=== PATIENT | female | born 1960 | race Caucasian/White ===

== ENCOUNTER 2019-09-24 20:20 | Inpatient (IN) | payer SELFPAY ==
[~2019-09-24] VITALS: Ht 167.6 cm; Wt 155.6 kg
[~2019-09-24 20:20] MED LIST: INSU100V31 SQ; INSU100V8 SQ; LISI1TAB20 PO; METF10007 PO
--- NOTE | 2019-09-24 20:46 | PHYS DOC ---
Past Medical History Past Medical History: Arthritis, COPD, Depression, Diabetes-Type II, Fibr omyalgia, Hypertension, Pneumonia, Other Additional Past Medical Histor: neuropathy Past Surgical History: Tubal ligation, Other Additional Past Surgical Histo: Colonoscopy, Mole removal, Cyst removal, Kidney stone Smoking Status: Never Smoker Alcohol Use: None Drug Use: None General Adult EDM: Chief Complaint: CHEST PAIN HPI: HPI: Patient is a 58-year-old female with multiple medical problems including fibromyalgia and diabetes who presents with multiple complaints tonight. First she states she has some pain in her chest that she is described as a tightness. She has associated nausea. She states the pain radiates into her back and left arm. EMS was called and gave her morphine, Zofran, nitro and aspirin with little to no relief of her symptoms. She denies any fever chills or sweats. She has had no upper respiratory type symptoms. She states this just started within the last couple of hours. She states the pain is aching in nature and nothing seems to make it better or worse. [] Review of Systems: Review of Systems: Constitutional: Denies fever or chills. [] Eyes: Denies change in visual acuity. [] HENT: Denies nasal congestion or sore throat. [] Respiratory: Denies cough or shortness of breath. [] Cardiovascular: Per HPI. [] GI: Denies abdominal pain, nausea, vomiting, bloody stools or diarrhea. [] : Denies dysuria. [] Musculoskeletal: Denies back pain or joint pain. [] Integument: Denies rash. [] Neurologic: Denies headache, focal weakness or sensory changes. [] Endocrine: Denies polyuria or polydipsia. [] Lymphatic: Denies swollen glands. [] Psychiatric: Denies depression or anxiety. [] Heart Score: HEART Score for Chest Pain: HEART Score for Chest Pain Response (Comments) Value History Highly Suspicious 2 ECG Nonspecific Repolarizatio 1 Age >45 - < 65 1 Risk Factors 1 or 2 Risk Factors 1 Troponin < Normal Limit 0 Total 5 Risk Factors: Risk Factors: DM, Current or recent (<one month) smoker, HTN, HLP, family history of CAD, obesity. Risk Scores: Score 0 - 3: 2.5% MACE over next 6 weeks - Discharge Home Score 4 - 6: 20.3% MACE over next 6 weeks - Admit for Clinical Observation Score 7 - 10: 72.7% MACE over next 6 weeks - Early Invasive Strategies Current Medications: Current Medications Medications (Trade) Dose Ordered Sig/David Start Time Stop Time Status Last Admin Dose Admin Lorazepam (Ativan Inj) 1 mg 1X ONCE 09/24/19 20:45 09/24/19 20:46 Allergies: Allergies: Allergies Coded Allergies Type Severity Reaction Last Updated Verified codeine Allergy Intermediate N/V 09/01/13 Yes hydromorphone Allergy Intermediate N/V 09/01/13 Yes Physical Exam: PE: Constitutional: Well developed, well nourished, no acute distress, non-toxic appearance. [] HENT: Normocephalic, atraumatic, bilateral external ears normal, oropharynx moist, no oral exudates, nose normal. [] Eyes: PERRLA, EOMI, conjunctiva normal, no discharge. [] Neck: Normal range of motion, no tenderness, supple, no stridor. [] Cardiovascular:Heart rate regular rhythm, no murmur [] Lungs & Thorax: Bilateral breath sounds clear to auscultation [] Abdomen: Bowel sounds normal, soft, no tenderness, no masses, no pulsatile masses. [] Skin: Warm, dry, no erythema, no rash. [] Back: No tenderness, no CVA tenderness. [] Extremities: No tenderness, no cyanosis, no clubbing, ROM intact, no edema. [] Neurologic: Alert and oriented X 3, normal motor function, normal sensory function, no focal deficits noted. [] Psychologic: Affect normal, judgement normal, mood normal. [] EKG: EKG: [] EKG: Sinus tachycardia rate of [address]-T changes Radiology/Procedures: Radiology/Procedures: []REASON: chest pain PROCEDURE: CHEST AP ONLY CHEST AP ONLY Clinical Indication: Reason: chest pain Comparison: Two-view chest, September 22, 2015. Findings: The cardiac size is upper limits of normal, stable. There is increased opacity in the left lung base. There is no pneumothorax. No pleural effusion is appreciated. No acute bone abnormality. There is mild right convexity thoracic scoliosis. IMPRESSION: Left basilar airspace disease. Impression: REASON: severe headache PROCEDURE: CT HEAD WO CONTRAST CT HEAD WO CONTRAST Date: 09/24/2019 8:36 PM Clinical Indication: Reason: severe headache / Spl. Instructions: / History: Comparison: None. Technique: 5 mm axial tomographic images were obtained of the head without contrast. These were viewed on brain and bone windows. One or more of the following dose reduction techniques were utilized: Automated exposure control (AEC), Adjustment of mA and/or kV according to patient size, Use of iterative reconstruction technique such as ASiR, CT scan done according to ALARA and image gently/image wisely Findings: The brain parenchyma is normal in attenuation. No intra- or extra-axial mass or fluid collection. No acute hemorrhage. The ventricles are normal in size, shape, and morphology. The rocha-white matter junction is normal. The subarachnoid cisterns are patent. The visualized paranasal sinuses are normal. The visualized portions of the orbits and globes are normal. Fluid in the aditus ad antrum on the left.. The scout executive topogram shows no lytic lesion or fracture. Impression: No acute intracranial process. Course & Med Decision Making: Course & Med Decision Making pertinent Labs and Imaging studies reviewed. (See chart for details) [] ED course: Valuation reveals a 58-year-old female with left-sided chest pain. Her EKG did not show any evidence of ischemia her troponin was negative how ever chest x-ray did show left basilar airspace disease so I went ahead and treated her with antibiotics. She has not had any fever or real upper respiratory symptoms to suggest this is a pneumonia we will let internal medicine decide tomorrow if they want to continue treatment. Veronica Disclaimer: Veronica Disclaimer: This electronic medical record was generated, in whole or in part, using a voice recognition dictation system. Departure Departure Impression: Primary Impression: Chest pain Qualified Codes: R07.9 - Chest pain, unspecified Disposition: 09 ADMITTED INPATIENT Admitting Physician: CHICA Condition: STABLE Referrals: NO PCP (PCP) ZAY SMART DO September 24, 2019 20:46
[2019-09-24 20:51] LABS: BASO % 0 % (0-3); EOS # 0.1 x10^3/uL (0.0-0.7); EOS % 1 % (0-3); HEMATOCRIT 45.8 % (36.0-47.0); HEMOGLOBIN 15.1 g/dL (12.0-15.5); LYMPH # 2.7 x10^3/uL (1.0-4.8); LYMPH % 26 % (24-48); MEAN CORPUSCULAR HEMOGLOBIN 28 pg (25-35); MEAN CORPUSCULAR HGB CONC 33 g/dL (31-37); MEAN CORPUSCULAR VOLUME 85 fL (79-100); MONO # 0.6 x10^3/uL (0.0-1.1); MONO % 6 % (0-9); NEUT # 6.8 x10^3/uL (1.8-7.7); NEUT % 67 % (31-73); PLATELET COUNT 271 x10^3/uL (140-400); WHITE BLOOD COUNT 10.2 x10^3/uL (4.0-11.0)
--- NOTE | 2019-09-24 21:03 | RAD ---
CHEST AP ONLY Clinical Indication: Reason: chest pain Comparison: Two-view chest, September 22, 2015. Findings: The cardiac size is upper limits of normal, stable. There is increased opacity in the left lung base. There is no pneumothorax. No pleural effusion is appreciated. No acute bone abnormality. There is mild right convexity thoracic scoliosis. IMPRESSION: Left basilar airspace disease. Electronically signed by: Sahil Eckert MD (09/24/2019 9:00 PM) [facility]
[2019-09-24 21:07] LABS: CALCIUM 8.4 mg/dL (8.5-10.1); CREATININE 0.8 mg/dL (0.6-1.0); GFR 73.2; POTASSIUM 4.2 mmol/L (3.5-5.1)
[2019-09-24 21:13] LABS: ALBUMIN 2.9 g/dL (3.4-5.0); ALBUMIN/GLOBULIN RATIO 0.8 (1.0-1.7); MAGNESIUM 1.7 mg/dL (1.8-2.4); TOTAL BILIRUBIN 0.1 mg/dL (0.2-1.0); TOTAL PROTEIN 6.4 g/dL (6.4-8.2)
[2019-09-24 21:15] LABS: BILIRUBIN,URINE NEGATIVE (NEG); CLARITY,URINE CLEAR; COLOR,URINE YELLOW; NITRITE,URINE NEGATIVE (NEG); PROTEIN,URINE NEGATIVE (NEG-TRACE); UROBILINOGEN,URINE 0.2 mg/dL (0.2 mg/dL)
[2019-09-24 21:18] LABS: BACTERIA,URINE MODERATE /HPF (0-FEW); RBC,URINE 0 /HPF (0-2); SQUAMOUS EPITHELIAL CELL,UR MOD /LPF
--- NOTE | 2019-09-24 21:47 | RAD ---
CT HEAD WO CONTRAST Date: 09/24/2019 8:36 PM Clinical Indication: Reason: severe headache / Spl. Instructions: / History: Comparison: None. Technique: 5 mm axial tomographic images were obtained of the head without contrast. These were viewed on brain and bone windows. One or more of the following dose reduction techniques were utilized: Automated exposure control (AEC), Adjustment of mA and/or kV according to patient size, Use of iterative reconstruction technique such as ASiR, CT scan done according to ALARA and image gently/image wisely Findings: The brain parenchyma is normal in attenuation. No intra- or extra-axial mass or fluid collection. No acute hemorrhage. The ventricles are normal in size, shape, and morphology. The rocha-white matter junction is normal. The subarachnoid cisterns are patent. The visualized paranasal sinuses are normal. The visualized portions of the orbits and globes are normal. Fluid in the aditus ad antrum on the left.. The master automotive technician topogram shows no lytic lesion or fracture. Impression: No acute intracranial process. Electronically signed by: Jose Antonio Mercedes MD (09/24/2019 9:44 PM) [id number]
[2019-09-24] MEDS ORDERED: ACETAMINOPHEN 325 MG TABLET. PO PRN (22:00)
[2019-09-24] MEDS ORDERED: NITROGLYCERIN SUBLINGUAL 0.4 MG BOTTLE OF 25. SL PRN (22:00)
[2019-09-24] MEDS ORDERED: ONDANSETRON PF 4 MG/2 ML VIAL. IV PRN (22:00)
[2019-09-24] MEDS ORDERED: MORPHINE SULFATE 4 MG/ML VIAL. IV PRN (22:00)
[2019-09-24] MEDS ORDERED: cefTRIAXone IV Push 1 GM VIAL. IVP ONE (22:30)
[2019-09-24] MEDS ORDERED: AZITHRMYCN 500MG IVPB FOR OMNI 250 ML IV ONE (22:30)
[2019-09-24 23:37] VITALS: BP 119/86
--- NOTE | 2019-09-25 01:17 | NUR ---
Upon reviewing home medication list patient reports she does not take any medication at home.
[2019-09-25 02:51] VITALS: BP 105/45
--- NOTE | 2019-09-25 06:35 | EKG ---
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
[2019-09-25 07:00] VITALS: BP 144/70
--- NOTE | 2019-09-25 08:33 | HP ---
ADMIT DATE: 09/24/2019 CHIEF COMPLAINT: Chest pain. HISTORY OF PRESENT ILLNESS: The patient is a pleasant elderly female who presented to the ER with chest pain, rated 6/10, has associated weakness, has been occurring off and on for a couple of days. She took some home meds, but that did not work. I discussed the case with ER physician. We are admitting the patient with consultation to Cardiology. PAST MEDICAL HISTORY: Arthritis, COPD, depression, diabetes, fibromyalgia, hypertension, pneumonia, neuropathy, tubal ligation, colonoscopy, mole removal, cyst removal, kidney stone. ALLERGIES: CODEINE AND HYDROMORPHONE. FAMILY HISTORY: Coronary artery disease. SOCIAL HISTORY: She does not drink, smoke or take drugs. MEDICATIONS: Reviewed, please refer to the MRAD. REVIEW OF SYSTEMS: GENERAL: No history of weight change, weakness or fevers. SKIN: No bruising, hair changes or rashes. EYES: No blurred, double or loss of vision. NOSE AND THROAT: No history of nosebleeds, hoarseness or sore throat. HEART: No history of palpitations, chest pain or shortness of breath on exertion. LUNGS: Denies cough, hemoptysis, wheezing or shortness of breath. GASTROINTESTINAL: Denies changes in appetite, nausea, vomiting, diarrhea or constipation. GENITOURINARY: No history of frequency, urgency, hesitancy or nocturia. NEUROLOGIC: Denies history of numbness, tingling, tremor or weakness. PSYCHIATRIC: No history of panic, anxiety or depression. ENDOCRINE: No history of heat or cold intolerance, polyuria or polydipsia. EXTREMITIES: Denies muscle weakness, joint pain, pain on walking or stiffness. PHYSICAL EXAMINATION: VITALS: Within normal limits and are stable. GENERAL: No apparent distress. Alert and oriented. HEENT: Normal cephalic atraumatic, external auditory canals are patent EYES: Extraocular muscles are intact, pupils are equally round and reactive to light and accommodation MUSCULOSKELETAL: Well developed, well nourished, good range of motion ENDOCRINE: No thyromegaly was palpated LYMPHATICS: No cervical chain or axillary nodes were noted HEMATOPOIETIC: No bruising NECK: Supple, no JVD, no thyromegaly was noted. LUNGS: Clear to auscultation in all lung mcneil without rhonchi or wheezing. HEART: RRR, S1, S2 present. Peripheral pulses intact, no obvious murmurs were noted. ABDOMEN: Soft, nontender. Positive bowel sounds no organomegaly, normal bowel sounds. EXTREMITIES: Without any cyanosis, clubbing, or edema. Pedal pulses intact, Homans sign is negative. NEUROLOGIC: Normal speech, normal tone. A & O x3, moves all extremities, no obvious focal deficits. PSYCHIATRIC: Normal affect, normal mood. Stable. SKIN: No ulcerations or rashes, good skin turgor, no jaundice. VASCULAR: Good capillary refill, neurovascular bundle appears to be intact. LABORATORY DATA: Troponin is 0. ASSESSMENT AND PLAN: Chest pain, rule out coronary artery disease. The patient will be admitted. We will check serial enzymes, serial EKGs. Consult Cardiology. Home meds, DVT prophylaxis. Full code. MARILUZ DEGROOT DO DR: LIZETTE/jaime JOB#: [id number] / [id number]
--- NOTE | 2019-09-25 08:49 | PDOC2 ---
SHIVA WAGONER [facility] CASE MANAGER 09/25/19 0849: CARDIAC CONSULT DATE OF CONSULT Date of Consult DATE: 09/25/19 TIME: 08:27 REASON FOR CONSULT Reason for Consult: Chest pain REFERRING PHYSICIAN Referring Physician: billie SOURCE Source: Chart review, Patient HISTORY OF PRESENT ILLNESS HISTORY OF PRESENT ILLNESS This is a pleasant 58 yo female admitted for complains of chest discomfort while sitting. This was pressure which hurts when she moves and when her midchest is palpated. IT was hurting enough that she could not take a deep breath. She could hear her pulse in her head and was a little nauseated. She then felt flushed and a little dizzy. No significant PORTER. EMS came and noted her BP was close to 200/100. She also has GERD and takes an OTC med which she could not tell me the name. She has DM and takes OC insulin sometimes. Currently she still has the pain and again this is reproducible. She also passed out last week but unclear how long she was and again she felt that her BP was high at that time. She lives with her ex spouse who is a straight truck driver. She does not work and does not have source of income and does not take routine meds since she could not afford and has not seen any physicians. Her BG has been high at home in the 200-300s. Denies any cough,fever chills, and no injuries in relation to her syncope, she was standing up when this happened. PAST MEDICAL HISTORY Cardiovascular: HTN Pulmonary: COPD CENTRAL NERVOUS SYSTEM: Periperal neuropathy GI: GERD Heme/Onc: Other (DVT) Hepatobiliary: Other (fatty liver disease) Psych: Anxiety, Depression Musculoskeletal: Osteoarthritis Rheumatologic: Fibromyalgia Infectious disease: No pertinent hx ENT: No pertinent hx Renal/: UTI Endocrine: Diabetes (2) Dermatology: No pertinent hx PAST SURGICAL HISTORY Past Surgical History: Tubal Ligation, Other (IVC filter) FAMILY HISTORY Family History: Coronary Artery Disease (brother) SOCIAL HISTORY Smoke: Quit ALCOHOL: none Drugs: None Lives: with Family CURRENT MEDICATIONS CURRENT MEDICATIONS Current Medications Medications (Trade) Dose Ordered Sig/David Route PRN Reason Start Time Stop Time Status Last Admin Dose Admin Lorazepam (Ativan Inj) 1 mg 1X ONCE IV 09/24/19 20:45 09/24/19 20:46 DC 09/24/19 21:11 Acetaminophen (Tylenol) 650 mg PRN Q4HRS PRN PO FEVER > 100.3'F 09/24/19 22:00 09/25/19 21:59 09/25/19 02:47 Ceftriaxone Sodium (Rocephin) 1 gm 1X ONCE IVP 09/24/19 22:30 09/24/19 22:31 DC 09/24/19 22:55 Azithromycin 250 ml @ 250 mls/hr 1X ONCE IV 09/24/19 22:30 09/24/19 23:29 DC 09/24/19 22:30 ALLERGIES ALLERGIES: Coded Allergies: codeine (Verified Allergy, Intermediate, N/V, 09/01/13) hydromorphone (Verified Allergy, Intermediate, N/V, 09/01/13) ROS Review of System 14 point ROS evaluated with pertinent positives noted per HPI PHYSICAL EXAM General: Alert, Oriented X3, Cooperative, No acute distress HEENT: Atraumatic, Mucous membr. moist/pink Lungs: Clear to auscultation, Normal air movement Heart: Regular rate (SR no extopies), Normal S1, Normal S2, No murmurs Abdomen: Soft, No tenderness Extremities: No cyanosis, Other (trace LE edema) Skin: No breakdown Neuro: Sensation intact Psych/Mental Status: Mental status NL, Mood NL MUSCULOSKELETAL: Osteoarthritic changes both hands VITALS/I&O VITALS/I&O: Vital Signs Date Time Temp Pulse Resp B/P (MAP) Pulse Ox O2 Delivery O2 Flow Rate FiO2 09/25/19 07:00 97.5 79 20 144/70 (94) 96 Nasal Cannula 2.0 97.5 I & O 09/24/19 09/24/19 09/25/19 14:59 22:59 06:59 Intake Total 360 ml Output Total 750 ml Balance -390 ml LABS Lab: Laboratory Tests Test 09/24/19 20:45 09/24/19 21:00 09/25/19 01:40 09/25/19 04:30 White Blood Count 10.2 x10^3/uL (4.0-11.0) Red Blood Count 5.40 x10^6/uL (3.50-5.40) Hemoglobin 15.1 g/dL (12.0-15.5) Hematocrit 45.8 % (36.0-47.0) Mean Corpuscular Volume 85 fL (79-100) Mean Corpuscular Hemoglobin 28 pg (25-35) Mean Corpuscular Hemoglobin Concent 33 g/dL (31-37) Red Cell Distribution Width 15.0 % (11.5-14.5) H Platelet Count 271 x10^3/uL (140-400) Neutrophils (%) (Auto) 67 % (31-73) Lymphocytes (%) (Auto) 26 % (24-48) Monocytes (%) (Auto) 6 % (0-9) Eosinophils (%) (Auto) 1 % (0-3) Basophils (%) (Auto) 0 % (0-3) Neutrophils # (Auto) 6.8 x10^3/uL (1.8-7.7) Lymphocytes # (Auto) 2.7 x10^3/uL (1.0-4.8) Monocytes # (Auto) 0.6 x10^3/uL (0.0-1.1) Eosinophils # (Auto) 0.1 x10^3/uL (0.0-0.7) Basophils # (Auto) 0.0 x10^3/uL (0.0-0.2) D-Dimer (Riya) 0.47 ug/mlFEU (0.00-0.50) Sodium Level 141 mmol/L (136-145) Potassium Level 4.2 mmol/L (3.5-5.1) Chloride Level 104 mmol/L (98-107) Carbon Dioxide Level 32 mmol/L (21-32) Anion Gap 5 (6-14) L Blood Urea Nitrogen 10 mg/dL (7-20) Creatinine 0.8 mg/dL (0.6-1.0) Estimated GFR (Cockcroft-Gault) 73.2 BUN/Creatinine Ratio 13 (6-20) Glucose Level 296 mg/dL (70-99) H Calcium Level 8.4 mg/dL (8.5-10.1) L Magnesium Level 1.7 mg/dL (1.8-2.4) L Total Bilirubin 0.1 mg/dL (0.2-1.0) L Aspartate Amino Transferase (AST) 12 U/L (15-37) L Alanine Aminotransferase (ALT) 22 U/L (14-59) Alkaline Phosphatase 132 U/L (46-116) H Troponin I Quantitative < 0.017 ng/mL (0.000-0.055) < 0.017 ng/mL (0.000-0.055) < 0.017 ng/mL (0.000-0.055) Total Protein 6.4 g/dL (6.4-8.2) Albumin 2.9 g/dL (3.4-5.0) L Albumin/Globulin Ratio 0.8 (1.0-1.7) L Thyroid Stimulating Hormone (TSH) 4.339 uIU/mL (0.358-3.74) H Urine Collection Type Unknown Urine Color Yellow Urine Clarity Clear Urine pH 6.0 (<5.0-8.0) Urine Specific [place] 1.015 (1.000-1.030) Urine Protein Negative mg/dL (NEG-TRACE) Urine Glucose (UA) >=1000 mg/dL (NEG) Urine Ketones (Stick) Negative mg/dL (NEG) Urine Blood Negative (NEG) Urine Nitrite Negative (NEG) Urine Bilirubin Negative (NEG) Urine Urobilinogen Dipstick 0.2 mg/dL (0.2 mg/dL) Urine Leukocyte Esterase Negative (NEG) Urine RBC 0 /HPF (0-2) Urine WBC 1-4 /HPF (0-4) Urine Squamous Epithelial Cells Mod /LPF Urine Bacteria Moderate /HPF (0-FEW) Test 09/25/19 07:44 Glucose (Fingerstick) 213 mg/dL (70-99) H Laboratory Tests 09/24/19 20:45 Laboratory Tests 09/24/19 20:45 ASSESSMENT/PLAN ASSESSMENT/PLAN 1. Atypical chest pain: likely from MSK and accelerated HTN noted close to 200/100 via EMS at home 2. Suspect Hypertensive encephalopathy: syncope with nontraumatic fall last week. no rhythm ectopies so far 3. Uncontrolled DM2 with DPN: takes OTC insulin at times. per PCP 4. Accelerated HTN: now controlled 5. Morbid obesity 6. GERD exacerbation 7. Noncompliance: financial constraints. lives with ex-spouse 8. Hx of fibromyalgia 9. Hx of COPD 10. Hx of DVT with IVC filter Recommendations 1. TSH, lipids, TTE today 2. BP meds to start pending BP trend. HBPM. Encouraged wt loss, DASH diet. Dietitian consult 3. SS for outpt clinic referral and help with meds. 4. ASA and pepcid. 5. MCOT would be ideal but would not be able to afford this. 6. Discussed significantly in regards to treatment compliance. JUJU DE GUZMAN MD 09/26/19 0802: CARDIAC CONSULT ASSESSMENT/PLAN ASSESSMENT/PLAN Late entry for 09/25/2019 Patient seen and examined. Agree with above nurse practitioner note. Atypical chest pain. She has reproducible chest pain upon palpation. Echocardiogram is unremarkable. Continue blood pressure titration and may discharge from a cardiac standpoint after blood pressure is better controlled. SHIVA WAGONER APRN September 25, 2019 08:49 JUJU DE GUZMAN MD September 26, 2019 08:02
[2019-09-25] MEDS ORDERED: FAMOTIDINE 20 MG TABLET. PO ONE (09:00)
[2019-09-25 09:01] LABS: CREATININE 0.8 mg/dL (0.6-1.0); GFR 73.2; MAGNESIUM 1.8 mg/dL (1.8-2.4); POTASSIUM 5.1 mmol/L (3.5-5.1)
[2019-09-25 09:03] LABS: CHOLESTEROL/HDL RATIO 4.3
[2019-09-25 10:59] VITALS: BP 118/44
[2019-09-25] MEDS ORDERED: DEXTROSE 50% 25 GM / 50ML DISP.SYRIN. IV PRN (11:45)
[2019-09-25] MEDS: INSULIN LISPRO 300 UNITS/3 ML VIAL. SQ SCH ×2 (12:22→17:06)
--- NOTE | 2019-09-25 14:55 | NUR ---
SS following for discharge planning. SS reviewed pt chart and discussed with pt RN. Pt is self pay pt. Pt is from home and is currently requiring oxygen. PT/OT recommended halfway unit. SS will continue to follow for discharge planning.
[2019-09-25 15:00] VITALS: BP 123/47
[2019-09-25] MEDS ORDERED: LIDO:MAALOX 1:1 20 ML SINGLE DOSE. SWSW ONE (17:15)
[2019-09-25] MEDS ORDERED: PERFLUTREN PROTEIN-A MICROSPHR 0.22 MG/ML 3 ML VIAL. IV ONE (17:24)
[2019-09-25 19:00] VITALS: BP 106/70
[2019-09-25] MEDS ORDERED: ATORVASTATIN CALCIUM 10 MG TABLET. PO SCH (21:00)
[2019-09-25] MEDS ORDERED: FAMOTIDINE 20 MG TABLET. PO SCH (21:00)
[2019-09-25 22:54] VITALS: BP 122/57
[2019-09-25 23:08] LABS: HEMOGLOBIN A1C 10.3 % (4.8-5.6)
[2019-09-26 03:22] VITALS: BP 135/99
[2019-09-26 07:08] VITALS: BP 124/60
[2019-09-26] MEDS: INSULIN LISPRO 300 UNITS/3 ML VIAL. SQ SCH ×2 (07:53→12:24)
--- NOTE | 2019-09-26 07:57 | CARD ---
MR#: [id number] Date of Study: 09/25/2019 Ordering Physician: SHIVA WAGONER, Referring Physician: SHIVA WAGONER, Tech: Sommer Costa APPROVED REPORT EXAM: Two-dimensional and M-mode echocardiogram with Doppler, color Doppler with contrast. Other Information Quality : PoorHR: 95bpm Technically limited study due to body habitus and COPD INDICATION COPD Chest Pain Echo Enhancing Agent Indication: Endocardial border delineation Agent/Amount Used: Optison 10mL RISK FACTORS Hypertension Diabetes 2D DIMENSIONS RVDd2.4 (2.9-3.5cm)Left Atrium(2D)3.8 (1.6-4.0cm) IVSd1.6 (0.7-1.1cm)Aortic Root(2D)3.1 (2.0-3.7cm) LVDd5.3 (3.9-5.9cm)LVOT Diameter2.2 (1.8-2.4cm) PWd1.1 (0.7-1.1cm)LVDs2.7 (2.5-4.0cm) FS (%) 48.3 %SV106.0 ml LVEF(%)79.3 (>50%) Aortic Valve AoV Peak Jarvis.158.1cm/sAoV VTI34.7cm AO Peak GR.10.0mmHgLVOT VTI 20.78cm AO Mean GR.7mmHg Mitral Valve MV E Osvwyrlx02.7cm/sMV E Peak Gr.4mmHg MV DECEL [id number] A Cjjxlgkn585.3cm/s MV E Mean Gr.3mmHgE/A Ratio1.0 TDI Lateral E' P. V12.83cm/sMedial E' P. V9.93cm/s E/Lateral E'7.8E/Medial E'10.0 LEFT VENTRICLE The left ventricle is normal size. There is mild to moderate concentric left ventricular hypertrophy. The Ejection Fraction is 60-65%. The left ventricular systolic function is normal and the ejection f raction is within normal range. There is grossly normal LV segmental wall motion. Despite contrast us e, difficult to visualize due to body habitus. Transmitral Doppler flow pattern is Grade I-abnormal r elaxation pattern. RIGHT VENTRICLE The right ventricle is normal size. There is normal right ventricular wall thickness. The right ventr icular systolic function is normal. ATRIA The left atrium size is normal. The right atrium size is normal. The interatrial septum is intact wit h no evidence for an atrial septal defect or patent foramen ovale as noted on 2-D or Doppler imaging. AORTIC VALVE The aortic valve is not well visualized. Doppler and Color Flow revealed no significant aortic regurg itation. There is no significant aortic valvular stenosis. MITRAL VALVE The mitral valve is normal in structure and function. There is no evidence of mitral valve prolapse. There is no mitral valve stenosis. Doppler and Color Flow revealed no mitral valve regurgitation note d. TRICUSPID VALVE The tricuspid valve is not well visualized. Doppler and Color Flow revealed no tricuspid valve regurg itation noted. PULMONIC VALVE The pulmonic valve is not well visualized. GREAT VESSELS The aortic root is normal in size. The IVC was not visualized. PERICARDIAL EFFUSION There is no evidence of significant pericardial effusion. Critical Notification Critical Value: No <Conclusion> The Ejection Fraction is 60-65%. The left ventricular systolic function is normal and the ejection fr action is within normal range. There is grossly normal LV segmental wall motion. Despite contrast use, difficult to visualize due to body habitus. Technically very difficult study Signed by : Suman Nash, Electronically Approved : 09/26/2019 07:56:51
[2019-09-26] MEDS ORDERED: ASPIRIN ENTERIC COATED 81 MG TABLET.DR. PO SCH (08:00)
[2019-09-26 10:44] VITALS: BP 139/62
[2019-09-26] MEDS ORDERED: ATOR10TA60 PO (12:57)
[2019-09-26] MEDS ORDERED: ASPI-612 PO (12:57)
[2019-09-26] MEDS ORDERED: INSU100I11 SQ (12:57)
--- NOTE | 2019-09-26 13:36 | DS ---
DATE OF DISCHARGE: 09/26/2019 ADMISSION DIAGNOSIS: Chest pain. DISCHARGE DIAGNOSES: Atypical chest pain and obesity, chronic obstructive pulmonary disease, depression, diabetes, fibromyalgia, hypertension, previous pneumonia, neuropathy, tubal ligation, colonoscopy, mole removal, cyst removal, kidney stone. CONSULTS: Cardiology. PROCEDURES: None. HOSPITAL COURSE: The patient is a pleasant middle-aged female who presented with chest pain. We did full cardiac workup including serial enzymes, serial EKGs. Consult Cardiology. Cardiology was okay with going home. We planned to discharge with close outpatient followup. DISPOSITION: Home. ACTIVITY: As tolerated. DIET: Low sodium. MEDICATIONS: Please see the MRAD. TOTAL TIME: 32 minutes. MARILUZ DEGROOT DO DR: LIZETTE/jaime JOB#: [id number] / [id number]
--- NOTE | 2019-09-26 14:13 | NUR ---
Discharge Note: MUKESH FREEMAN [facility] Discharge instructions and discharge home medications reviewed with Patient and a copy given. All questions have been answered and understanding verbalized. All belongings taken with patient at discharge. The following instructions and handouts were given: chest pain, lipitor, and aspirin Discontinued lines and drains: Peripheral IV intact. Patient discharged to Home or Self Care with Self via Wheelchair
== END 2019-09-26 14:15 | disposition home or self-care (01) | DRG 313 ==
LOC: ER 20:20 → 2 SOUTH 21:47
PROVIDERS: ADMIT Internal Medicine; ATTEND Internal Medicine
DX: R07.89 Other chest pain (principal); Z68.43 Body mass index [BMI] 50.0-59.9, adult; E11.65 Type 2 diabetes mellitus with hyperglycemia; E11.40 Type 2 diabetes mellitus with diabetic neuropathy, unspecified; E66.01 Morbid (severe) obesity due to excess calories; F32.9 Major depressive disorder, single episode, unspecified; I10 Essential (primary) hypertension; J44.9 Chronic obstructive pulmonary disease, unspecified; K21.9 Gastro-esophageal reflux disease without esophagitis; K76.0 Fatty (change of) liver, not elsewhere classified; M79.7 Fibromyalgia; Z82.49 Family history of ischemic heart disease and other diseases of the circulatory system; Z86.718 Personal history of other venous thrombosis and embolism; Z87.01 Personal history of pneumonia (recurrent); Z87.442 Personal history of urinary calculi; Z91.19 Patient's noncompliance with other medical treatment and regimen; Z98.51 Tubal ligation status; F41.9 Anxiety disorder, unspecified; M19.90 Unspecified osteoarthritis, unspecified site; Z87.440 Personal history of urinary (tract) infections; Z79.899 Other long term (current) drug therapy; Z88.8 Allergy status to other drugs, medicaments and biological substances; Z79.01 Long term (current) use of anticoagulants
CPT/HCPCS: 96365; 96375; 99285; C8929; 36415; 70450; 71045; 80048; 80053; 80061; 81001; 82962; 83036; 83735; 84443; 84484; 85025; 85379; 87086; 93005; J0456; J0696; J1815; J2060; 97530-GO; 97530-GP; G0378